=== PATIENT | female | born 1965 | race Two or more races ===

== ENCOUNTER 2021-06-21 11:11 | Day surgery (SDC) | payer MEDICAID, SELFPAY ==
[~2021-06-21] VITALS: Ht 152.4 cm; Wt 77.1 kg
[~2021-06-21 11:11] MED LIST: DIPHENHYDRAMINE INJ 50 MG/ML VIAL ONE; MIDAZOLAM HCL 5 MG/5 ML VIAL ONE
[2021-06-21] MEDS ORDERED: NS 1000 ML IV.SOLN IV ONE (11:12)
[2021-06-21] MEDS ORDERED: ISOVUE-300 (IOPAMIDOL) 100 ML INFUS..BTL IV ONE (11:12)
[2021-06-21] MEDS ORDERED: LIDOCAINE 2%, 20 ML MDV INJ ONE (11:12)
[2021-06-21] MEDS ORDERED: BUPIVACAINE /EPINEPHRINE/PF 0.25% 30 ML VIAL INJ ONE (11:12)
[2021-06-21] MEDS ORDERED: methylPREDNISolone ACETATE 40 MG/ML IM ONE (11:12)
[2021-06-21 17:46] VITALS: BP_SYST 123
== END 2021-06-21 14:30 | disposition home or self-care (01) ==
LOC: SDS 11:11
PROVIDERS: ATTEND Internal Medicine
DX: M51.16 Intervertebral disc disorders with radiculopathy, lumbar region (principal); E11.9 Type 2 diabetes mellitus without complications; I10 Essential (primary) hypertension; E78.5 Hyperlipidemia, unspecified; Z90.49 Acquired absence of other specified parts of digestive tract; Z20.822 Contact with and (suspected) exposure to COVID-19; Z79.899 Other long term (current) drug therapy
CPT/HCPCS: 36415; 62323; 87426; J1030; J1200; J2001; J2250; J3490; J7030; Q9967; U0003 ×2; 76000